=== PATIENT | female | born 1970 | race Caucasian/White ===

== ENCOUNTER 2018-03-15 19:22 | Emergency (ER) | payer OTHER ==
[2018-03-15 20:01] VITALS: TEMP 97.9
[2018-03-15] MEDS ORDERED: MORPHINE SULFATE 4 MG/ML SYRINGE IM STA (20:09)
--- NOTE | 2018-03-15 20:14 | ED ---
Upper Extremity HPI <Martinez Gimenez - Last Filed: 03/15/18 22:14> - General Source: patient, RN notes reviewed Mode of arrival: ambulatory Limitations: no limitations <María Griffin - Last Filed: 03/16/18 00:05> - General Chief Complaint: Extremity Injury, Upper Stated Complaint: rt wrist injury Time Seen by Provider: 03/15/18 19:57 - History of Present Illness Initial Comments: This is a 47-year-old female who presents to the emergency department with chief complaint of right wrist injury. Patient states that her was spraying bees approximately one hour ago. She states that she was running backwards and fell, landing with her arms behind her with an outstretched hand. Patient complains of pain to the right wrist. Obvious rust deformity. Patient states that she is in a significant amount of pain that it's making her feel nauseous and like she is going to pass out. She denies any other injuries or trauma. Complains of some numbness to the fingers. Denies fevers or chills , chest pain or shortness of breath, abdominal pain. (María Griffin) - Related Data Previous Rx's Medication Instructions Recorded HYDROcodone/APAP 5-325MG [[place] 5] 1 each PO Q6HR PRN #10 tab 03/15/18 Allergies Allergy/AdvReac Type Severity Reaction Status Date / Time cephalexin [From Keflex] Allergy Rash/Hives Verified 03/15/18 20:02 Penicillins Allergy Unknown Verified 03/15/18 20:02 Childhood Review of Systems ROS Other: All systems not noted in ROS Statement are negative. <Martinez Gimenez - Last Filed: 03/15/18 22:14> ROS Other: All systems not noted in ROS Statement are negative. <María Griffin - Last Filed: 03/16/18 00:05> ROS Statement: Those systems with pertinent positive or pertinent negative responses have been documented in the HPI. Past Medical History Past Medical History: GERD/Reflux History of Any Multi-Drug Resistant Organisms: None Reported Past Surgical History: Tonsillectomy, Tubal Ligation Past Psychological History: Depression Smoking Status: Never smoker Past Alcohol Use History: Occasional Past Drug Use History: None Reported <María Griffin - Last Filed: 03/16/18 00:05> General Exam <Martinez Gimenez - Last Filed: 03/15/18 22:14> Limitations: no limitations <María Griffin - Last Filed: 03/16/18 00:05> - General Exam Comments Initial Comments: General: Awake and alert, well-developed; in mild distress due to pain. HEENT: Head atraumatic, normocephalic. Pupils are equal, round and reactive to light. Extraocular movements intact. Oropharynx moist without erythema or exudate. Neck: Supple. Normal ROM. Cardiovascular: Regular rate and rhythm. No murmurs, rubs or gallops. Chest symmetrical. Respiratory: Lungs clear to auscultation bilaterally. No wheezes, rales or rhonchi. Normal respiratory effort with no use of accessory muscles. Musculoskeletal: There is obvious gross deformity of the right distal radius. Sensation is intact. Radial pulses are 2+ equal and palpable bilaterally. Patient does have normal movement of all fingers. Unable to move the wrist. Normal range of motion of the right elbow. Skin: [place], warm and dry without rashes or lesions. Neurological: Alert and oriented x3. CN II-XII grossly intact. Speech is fluent and answers are appropriate. No focal neuro deficits. Psychiatric: Normal mood and affect. No overt signs of depression or anxiety noted. (María Griffin) Vital Signs 03/15/18 03/15/18 03/15/18 19:57 21:39 21:42 Temperature 97.9 F Pulse Rate 74 75 72 Respiratory 20 18 18 Rate Blood Pressure 144/63 143/71 146/78 O2 Sat by Pulse 97 98 99 Oximetry 03/15/18 03/15/18 21:45 21:50 Temperature Pulse Rate 60 69 Respiratory 18 18 Rate Blood Pressure 142/73 144/77 O2 Sat by Pulse 100 100 Oximetry Procedures - Procedural Sedation ASA Class: I Mallampati Airway Score: 1 Preparation: radiation engineer applied, pulse oximeter, capnometry used, supplemental O2 applied, suction/airway equipment at bedside, IV secured IV Propofol Dose (mgs): 80 Complications: none Interventions: oxygen applied Patient Tolerated Procedure: well <Martinez Gimenez - Last Filed: 03/15/18 22:14> Medical Decision Making <Martinez Gimenez - Last Filed: 03/15/18 22:14> - Radiology Data Radiology results: report reviewed, image reviewed <María Griffin - Last Filed: 03/16/18 00:05> - Medical Decision Making Resident/PA attestation: I, Dr. Martinez Gimenez, personally saw and examined the patient. I have reviewed and agree with the resident/PA findings, including all diagnostic interpretations and treatment plans as written unless otherwise stated. I was present for the young portions of any procedures performed and inclusive time noted for any critical care statement. Briefly, patient is a 47-year-old female presents with right distal radius fracture. Orthopedic surgery was at bedside performed the reduction. Moderate sedation was performed using a milligrams of propofol bolus. Patient tolerated procedure well. Postreduction films reviewed by myself and orthopedic surgeon for within acceptable limits. Patient put in a splint. She observed in emergency department for several minutes post moderate sedation. (Martinez Gimenez) 47-year-old female presents to the emergency department with chief complaint of right wrist injury. On physical examination, patient has an obvious gross deformity. Neurovascularly intact. Dr. Manpreet Salamanca was consulted and performed a conscious sedation and reduction with splint placement. Patient did tolerate the procedure well. Post reduction x-ray revealed anatomic alignment. Following the procedure, patient ambulating normally and tolerating by mouth intake. Pain is controlled. Patient is to follow-up with Dr. Salamanca tomorrow morning. She is provided with a prescription for [place]. Vital signs stable and in no acute distress. Discharged home at this time. She is in agreement with plan and voices understanding. All questions were answered. (María Griffin) - Radiology Data X-ray of right wrist/forearm impression: Complex fracture dislocation at the radiocarpal joint with approximately 2 cm override X-ray of right wrist post reduction impression: Postreduction anatomic positioning in alignment. (María Griffin) Disposition <Martinez Gimenez - Last Filed: 03/15/18 22:14> Is patient prescribed a controlled substance at d/c from ED?: Yes When asked, does pt state using other controlled substances?: No If prescribed controlled substance>3 days was MAPS reviewed?: Prescribed <3 Days Time of Disposition: 22:39 <Cromwell,María M - Last Filed: 03/16/18 00:05> Clinical Impression: Closed fracture dislocation of radiocarpal joint Disposition: HOME SELF-CARE Condition: Good Instructions: Arm Fracture in Adults (ED) Additional Instructions: Please take medications as prescribed. Please follow up with Dr. Manpreet Salamanca tomorrow morning. Please follow up with primary care provider within 1 -2 days. Return to emergency department if symptoms should worsen or any concerns arise. Prescriptions: HYDROcodone/APAP 5-325MG [[place] 5] 1 each PO Q6HR PRN #10 tab PRN Reason: Pain Referrals: Jacinta Rollins DO [Primary Care Provider] - 1-2 days Manpreet Salamanca DO [Doctor of Osteopathic Medicine] - 1-2 days
[2018-03-15] MEDS ORDERED: ETOMIDATE 2 MG/ML 10 ML VIAL IV STA (20:56)
[2018-03-15] MEDS ORDERED: PROPOFOL 1,000 MG in EMPTY BAG 1 BAG IV ONE (21:07)
[2018-03-15 21:41] VITALS: RESP 18
[2018-03-15] MEDS ORDERED: PROPOFOL 10 MG/ML 20 ML VIAL IV STA (21:42)
[2018-03-15 21:51] VITALS: BP 144/77; PULSE 69
--- NOTE | 2018-03-15 21:56 | XR ---
PROCEDURE: XR wrist limited RT 2 views DATE AND TIME: 03/15/2018 8:29 PM REFERRING PHYSICIAN: María Griffin CLINICAL INDICATION: PHH, Pain TECHNIQUE: Department protocol. COMPARISON: None FINDINGS: There is a complete fracture/dorsal dislocation at the radiocarpal joint with approximately 2 cm override. The fracture fragments predominantly involve the distal radius. IMPRESSION: Complex fracture dislocation.
--- NOTE | 2018-03-15 21:58 | XR ---
PROCEDURE: XR forearm RT 3 views DATE AND TIME: 03/15/2018 8:29 PM REFERRING PHYSICIAN: María Griffin CLINICAL INDICATION: PHH, Pain TECHNIQUE: Department protocol. COMPARISON: None FINDINGS: Previously described complex fracture dislocation at the right wrist redemonstrated. The re mainder of the radius and ulna, up to the elbow, have normal appearance. IMPRESSION: Right wrist complex fracture/dislocation.
--- NOTE | 2018-03-15 22:25 | XR ---
PROCEDURE: XR wrist limited RT - 2 views post reduction DATE AND TIME: 03/15/2018 10:12 PM REFERRING PHYSICIAN: María Griffin CLINICAL INDICATION: PHH, POST REDUCTION TECHNIQUE: Department protocol. COMPARISON: Prereduction views, same day FINDINGS: The post reduction AP and lateral views show anatomic positioning and alignment of the comm inuted distal radius fracture fragments and the radiocarpal joint. No additional fractures are evident. IMPRESSION: Post reduction anatomic positioning and alignment.
[2018-03-15] MEDS ORDERED: MORPHINE SULFATE/PF 10MG/10ML VL IVP STA (22:49)
--- NOTE | 2018-03-16 08:34 | MISC ---
MISCELLANOUS REPORT EMERGENCY ROOM REPORT: Date of encounter 03/15/2018. CHIEF COMPLAINT: Fracture right distal radius. HISTORY: Ms. Ruby is a 47-year-old female that slipped and fell onto her right wrist earlier in the evening of 03/15/2018. She experienced immediate pain and deformity of the wrist and came to the emergency room where x-rays were obtained which show a comminuted displaced fracture of her right distal radius. She is evaluated by the emergency room physician and after that, the emergency room physician contacted me for treatment of the fracture. I evaluated the patient at the bedside and other than the fracture of the right distal radius, there is no other apparent injuries. PHYSICAL EXAMINATION: Patient is alert, oriented x3, in obvious distress secondary to pain. Evaluation of her right wrist reveals obvious deformity of her wrist. Her skin is intact. No evidence of any open fracture. She is neurovascularly intact in the right upper extremity. No evidence of any motor or sensory deficits. She has some mild swelling and there appears to be no other injuries or events in her right wrist. X-rays were reviewed which show a comminuted intra-articular fracture of the right distal radius with 100% dorsal displacement. IMPRESSION: 1. Comminuted intra-articular fracture right distal radius with 100% dorsal displacement. 2. Right wrist pain and deformity. PLAN: The fracture was discussed at length with the patient. I have recommended a closed reduction under sedation and the patient was agreeable to this. The patient signed a consent for a conscious sedation and this was performed by the emergency room department. After a conscious sedation was given, a gentle manipulation was performed to the right distal radius and x-rays revealed concentric reduction of the fracture. The patient was placed in a well-padded and molded splint and tolerated the sedation well. After the procedure, the postoperative care was discussed at length. The patient has been recommended to follow up with me in 1-2 days and that this fracture will most likely require surgical intervention. They were instructed to ice and elevate the extremity. If there is any problems, to call me immediately. The patient was then discharged in stable condition. GLENDY / AKASH: [id number] /
--- NOTE | 2018-03-19 02:49 | CDI ---
Documentation Clarification OP Dear Liz Griffin,PAC, As reviewed the chart, Procedure stop time is missing, Please provide addendum for procedure stop time to code the moderate sedation Thank you, ruby younger. Project Mgr If you have any question, Please contact clinique counter manager at [phone] [facility]
== END 2018-03-15 22:52 | disposition home or self-care (01) ==
LOC: EC 19:22
DX: S52.501A Unspecified fracture of the lower end of right radius, initial encounter for closed fracture (principal); Z88.0 Allergy status to penicillin; W18.30XA Fall on same level, unspecified, initial encounter; Y93.89 Activity, other specified
CPT/HCPCS: 99284; 25605; 99156; 96374; 96372; 73090; 73100; J2270 ×2; J2704

== ENCOUNTER 2018-08-15 09:40 | Day surgery (SDC) | payer OTHER ==
[2018-08-10 13:39] VITALS: BMI 36.3
[~2018-08-15 09:40] MED LIST: LACTATED RINGERS 1,000 ML IV SCH
[2018-08-15 10:02] VITALS: RESP 16; TEMP 98
[2018-08-15] MEDS ORDERED: GLYCOPYRROLATE 0.2 MG/ML 2 ML VIAL ONE (10:30)
[2018-08-15] MEDS ORDERED: LIDOCAINE 1% INJ 10MG/ML (20 ML MDV) ONE (10:30)
[2018-08-15] MEDS ORDERED: PROPOFOL 10 MG/ML 20 ML VIAL IV ONE (10:30)
[2018-08-15 11:11] VITALS: BP 126/58; PULSE 84
--- NOTE | 2018-08-15 13:18 | P.PCN ---
Date of Procedure: 08/15/18 Procedure(s) Performed: Procedure: Esophagogastroduodenoscopy and biopsy. Preoperative diagnosis: Chronic reflux. Postoperative diagnosis: 1. Moderately size hiatal hernia with no obvious esophagitis or complicated reflux disease. 2. Mild gastritis. 3. Biopsies obtained from the duodenum, antrum and esophagus. Preparation and sedation: Was provided by anesthesia. Brief clinical history: The patient is a 47-year-old female who is referred for this evaluation because of chronic reflux symptoms that are not totally resolved with medical therapy. No other alarm symptoms. This evaluation is to assess for complicated reflux disease or other pathology. Procedure: With the patient on her left lateral decubitus position and after informed consent and adequate sedation, I passed the Olympus-GIF 190 video upper endoscope through the cricopharyngeus down the esophagus. GE junction was around 32 cm from the incisors and there was a moderately sized hiatal hernia but no obvious esophagitis or complicated reflux disease. The endoscope was then passed into the stomach which was insufflated with air and inspected in detail including the retroflex view in the cardia. There was some mottling and erythema in the antrum consistent with mild gastritis but there was no ulcers or erosions or bleeding. Pyloric channel, duodenal bulb, post bulbar area and descending duodenum appeared within normal limits. I obtained multiple biopsies from the duodenum, antrum and esophagus then the endoscope was withdrawn. The patient tolerated the procedure well. Plan: The patient was reassured. Will await biopsy results and make further plans based on her course and biopsy results. She will follow-up with you as planned.
== END 2018-08-15 11:44 | disposition home or self-care (01) ==
LOC: ORWHC2ENDO 09:40
DX: K29.50 Unspecified chronic gastritis without bleeding (principal); K44.9 Diaphragmatic hernia without obstruction or gangrene; K21.9 Gastro-esophageal reflux disease without esophagitis; J45.909 Unspecified asthma, uncomplicated; Z79.51 Long term (current) use of inhaled steroids; Z79.899 Other long term (current) drug therapy; Z88.1 Allergy status to other antibiotic agents; Z88.0 Allergy status to penicillin
CPT/HCPCS: 81025; 88305; 43239; J2001; J2704

== ENCOUNTER 2023-11-26 13:18 | Emergency (ER) | payer BC ==
[2023-11-26] MEDS: FAMOTIDINE 20 MG/2 ML VIAL IV STA (13:30)
[2023-11-26] MEDS: SODIUM CHLORIDE 0.9% 1,000 ML IV STA (13:48)
[2023-11-26 14:19] VITALS: TEMP 97.9
[2023-11-26 14:46] LABS: ALT 22 U/L (4-34); AST 21 U/L (14-36); African American GFR (CKD) >90 (>60 ml/min/1.73 sqM); Albumin 3.9 g/dL (3.5-5.0); Alkaline Phosphatase 81 U/L (38-126); Anion Gap 8 mmol/L; Blood Urea Nitrogen 12 mg/dL (7-17); Calcium 8.8 mg/dL (8.4-10.2); Carbon Dioxide 22 mmol/L (22-30); Chloride 110 mmol/L (98-107); Glucose 100 mg/dL (74-99); Non-African American GFR(CKD) >90 (>60 ml/min/1.73 sqM); Potassium 4.2 mmol/L (3.5-5.1); Sodium 140 mmol/L (137-145); Total Bilirubin 0.3 mg/dL (0.2-1.3); Total Protein 6.9 g/dL (6.3-8.2)
[2023-11-26 14:50] LABS: Basophils % (A) 1 %; Eosinophils % (A) 1 %; HCT 45.8 % (34.0-46.0); Lymphocytes # (A) 0.7 k/uL (1.0-4.8); Lymphocytes % (A) 25 %; MCH 31.3 pg (25.0-35.0); MCHC 32.7 g/dL (31.0-37.0); MCV 95.7 fL (80.0-100.0); Mean Platelet Volume 8.4; Monocytes % (A) 2 %; Neutrophils # (A) 1.8 k/uL (1.3-7.7); Neutrophils % (A) 71 %; Platelet Count 187 k/uL (150-450); RBC 4.79 m/uL (3.80-5.40); RDW 12.4 % (11.5-15.5); WBC 2.5 k/uL (3.8-10.6)
--- NOTE | 2023-11-26 14:50 | XR ---
EXAMINATION TYPE: XR chest 2V DATE OF EXAM: 11/26/2023 COMPARISON: None HISTORY: 53-year-old female with syncope TECHNIQUE: AP and lateral views FINDINGS: The cardiomediastinal silhouette, aorta, and pulmonary vasculature are within normal limits. Lungs an d pleural spaces are clear. Rounded retrocardiac opacity. IMPRESSION: No acute cardiopulmonary process. Rounded retrocardiac density suggesting a moderate-sized hiatal her manuel. Correlate for any associated symptoms.
[2023-11-26 15:02] LABS: INR 1.1 (<1.2); Partial Thromboplastin Time 23.2 sec (22.0-30.0); Prothrombin Time 11.9 sec (10.0-12.5)
[2023-11-26 15:45] VITALS: RESP 18
--- NOTE | 2023-11-26 16:06 | ED ---
General Adult HPI - General Chief complaint: Syncope Stated complaint: Syncope Time Seen by Provider: 11/26/23 13:25 Source: RN/MD Mode of arrival: wheelchair Limitations: no limitations - History of Present Illness Initial comments: 53-year-old female who was rushed to the ER from [facility] for possible allergic reaction. The patient states she has a history of iron deficiency anemia. She was at the [facility] today getting an iron infusion. States that today the patient received a different infusion than what she normally does. It is a shorter infusion. States that within a few minutes of the transfusion starting the patient began feeling extremely lightheaded. Staff went to check on her and found her eyes rolling in the back of her head. Patient was shaking, nauseated. She states that her heart was racing. She denied have any chest pain. States that she did not have this previous reaction to the other iron infusion. The patient was given 125 of Solu-Medrol and 50 mg of Benadryl and transferred to our emergency department for further evaluation. - Related Data Home Medications Medication Instructions Recorded Confirmed Zolpidem [Ambien] 10 mg PO HS 08/10/18 11/26/23 Omeprazole 40 mg PO BID 02/05/22 11/26/23 Famotidine [Pepcid AC] 10 mg PO DAILY PRN 11/26/23 11/26/23 Allergies Allergy/AdvReac Type Severity Reaction Status Date / Time ferumoxytol [From Feraheme] Allergy Severe Chest Pain Verified 11/26/23 15:05 cephalexin [From Keflex] Allergy Rash/Hives Verified 11/26/23 14:35 Penicillins Allergy Unknown Verified 11/26/23 14:35 Childhood Review of Systems ROS Statement: Those systems with pertinent positive or pertinent negative responses have been documented in the HPI. ROS Other: All systems not noted in ROS Statement are negative. Past Medical History Past Medical History: GERD/Reflux Additional Past Medical History / Comment(s): IRON DEFICIENCY ANEMIA. History of Any Multi-Drug Resistant Organisms: None Reported Past Surgical History: Orthopedic Surgery, Tonsillectomy, Tubal Ligation Additional Past Surgical History / Comment(s): ORIF RT ARM PLATES AND 7 SCREWS Past Anesthesia/Blood Transfusion Reactions: No Reported Reaction Past Psychological History: Depression Smoking Status: Never smoker - Past Family History Mother Family Medical History: No Reported History General Exam Limitations: no limitations General appearance: alert, anxious, other (Shaking) Head exam: Present: atraumatic, normocephalic, normal inspection Eye exam: Present: normal appearance, PERRL, EOMI. Absent: scleral icterus, conjunctival injection, periorbital swelling ENT exam: Present: normal exam, mucous membranes moist Neck exam: Present: normal inspection. Absent: tenderness, meningismus, lymphadenopathy Respiratory exam: Present: normal lung sounds bilaterally. Absent: respiratory distress, wheezes, rales, rhonchi, stridor Cardiovascular Exam: Present: regular rate, normal rhythm, normal heart sounds. Absent: systolic murmur, diastolic murmur, rubs, gallop, clicks GI/Abdominal exam: Present: soft, normal bowel sounds. Absent: distended, tenderness, guarding, rebound, rigid Extremities exam: Present: normal inspection, full ROM, normal capillary refill. Absent: tenderness, pedal edema, joint swelling, calf tenderness Back exam: Present: normal inspection Neurological exam: Present: alert, oriented X3, CN II-XII intact Psychiatric exam: Present: normal affect, normal mood Skin exam: Present: warm, dry, intact, normal color. Absent: rash Course Vital Signs 11/26/23 11/26/23 11/26/23 13:21 15:00 16:30 Temperature 97.9 F Pulse Rate 70 81 71 Respiratory 22 18 18 Rate Blood Pressure 131/74 109/71 117/65 O2 Sat by Pulse 100 97 97 Oximetry Medical Decision Making - Medical Decision Making Was pt. sent in by a medical professional or institution (, PA, TECHNICAL SUPPORT ASSOCIATE, urgent care, hospital, or retirement...) When possible be specific @ -Patient was sent in by the [facility] Did you speak to anyone other than the patient for history (EMS, parent, family, police, friend...)? What history was obtained from this source @ -I spoke with the charge nurse in regards the patient's symptoms as they did go over to the [facility] to get the patient Did you review nursing and triage notes (agree or disagree)? Why? @ -I reviewed and agree with nursing and triage notes Were old charts reviewed (outside hosp., previous admission, EMS record, old EKG, old radiological studies, urgent care reports/EKG's, retirement records)? Report findings @ -No old charts were reviewed Differential Diagnosis (chest pain, altered mental status, abdominal pain women, abdominal pain men, vaginal bleeding, weakness, fever, dyspnea, syncope, headache, dizziness, GI bleed, back pain, seizure, CVA, palpatations, mental health, musculoskeletal)? @ -Differential Palpitations Ventricular arrhythmias, atrial arrhythmias, myocardial infarction, anemia, thyrotoxicosis, electrolyte imbalance, hypokalemia, pulmonary embolism, pulmonary disease, drugs, alcohol, anxiety, stress.... This is not meant to be an all-inclusive list. EKG interpreted by me (3pts min.). @ -Yes and demonstrates sinus rhythm with a rate of 65. MA interval 124. QRS 98. QTc of 430. No acute ST segment elevations or depressions X-rays interpreted by me (1pt min.). @ -Yes and demonstrates no acute process CT interpreted by me (1pt min.). @ -None done U/S interpreted by me (1pt. min.). @ -None done What testing was considered but not performed or refused? (CT, X-rays, U/S, labs)? Why? @ -None What meds were considered but not given or refused? Why? @ -None Did you discuss the management of the patient with other professionals (professionals i.e. , PA, TECHNICAL SUPPORT ASSOCIATE, lab, RT, psych nurse, manager social responsibility, corrugator supervisor, teacher, bank operations officer, upper caser)? Give summary @ -No Was smoking cessation discussed for >3mins.? @ -No Was critical care preformed (if so, how long)? @ -No Were there social determinants of health that impacted care today? How? (Homelessness, low income, unemployed, alcoholism, drug addiction, transportation, low edu. Level, literacy, decrease access to med. care, assisted, rehab)? @ -No Was there de-escalation of care discussed even if they declined (Discuss DNR or withdrawal of care, Hospice)? DNR status @ -No What co-morbidities impacted this encounter? (DM, HTN, Smoking, COPD, CAD, Cancer, CVA, ARF, Chemo, Hep., AIDS, mental health diagnosis, sleep apnea, morbid obesity)? @ -Iron deficiency Was patient admitted / discharged? Hospital course, mention meds given and route, prescriptions, significant lab abnormalities, going to OR and other pertinent info. @ -Upon arrival patient was seen and evaluated in room 13. Thorough history and physical exam was performed. IV had been established. She was given Pepcid 20 mg. She was observed in the emergency department for several hours. She feels much improved as time goes on. Patient will be discharged home at this time. Instructed to steer clear of the iron infusion as she has a adverse effect to it. Patient understood this. Instructed to follow-up with her sitecore developer for evaluation return for any new or worsening symptoms. Patient agreeable and discharged in stable condition Undiagnosed new problem with uncertain prognosis? @ -No Drug Therapy requiring intensive monitoring for toxicity (Heparin, Nitro, In sulin, Cardizem)? @ -No Were any procedures done? @ -No Diagnosis/symptom? @ -Acute adverse reactioniron infusion, acute palpitations Acute, or Chronic, or Acute on Chronic? @ -Acute Uncomplicated (without systemic symptoms) or Complicated (systemic symptoms)? @ -Complicated Side effects of treatment? @ -No Exacerbation, Progression, or Severe Exacerbation? @ -No Poses a threat to life or bodily function? How? (Chest pain, [place], [place], pneumonia, PE, COPD, DKA, ARF, appy, cholecystitis, CVA, Diverticulitis, Homicidal, Suicidal, threat to staff... and all critical care pts) @ -No - Lab Data Result diagrams: 11/26/23 14:01 11/26/23 14:01 Lab Results 11/26/23 11/26/23 11/26/23 Range/Units 14:01 14:01 14:01 WBC 2.5 L (3.8-10.6) k/uL RBC 4.79 (3.80-5.40) m/uL Hgb 15.0 (11.4-16.0) gm/dL Hct 45.8 (34.0-46.0) % MCV 95.7 (80.0-100.0) fL MCH 31.3 (25.0-35.0) pg MCHC 32.7 (31.0-37.0) g/dL RDW 12.4 (11.5-15.5) % Plt Count 187 (150-450) k/uL MPV 8.4 Neutrophils % 71 % Lymphocytes % 25 % Monocytes % 2 % Eosinophils % 1 % Basophils % 1 % Neutrophils # 1.8 (1.3-7.7) k/uL Lymphocytes # 0.7 L (1.0-4.8) k/uL Monocytes # 0.0 (0-1.0) k/uL Eosinophils # 0.0 (0-0.7) k/uL Basophils # 0.0 (0-0.2) k/uL PT 11.9 (10.0-12.5) sec INR 1.1 (<1.2) APTT 23.2 (22.0-30.0) sec Sodium 140 (137-145) mmol/L Potassium 4.2 (3.5-5.1) mmol/L Chloride 110 H (98-107) mmol/L Carbon Dioxide 22 (22-30) mmol/L Anion Gap 8 mmol/L BUN 12 (7-17) mg/dL Creatinine 0.72 (0.52-1.04) mg/dL Est GFR (CKD-EPI)AfAm >90 (>60 ml/min/1.73 sqM) Est GFR (CKD-EPI)NonAf >90 (>60 ml/min/1.73 sqM) Glucose 100 H (74-99) mg/dL Calcium 8.8 (8.4-10.2) mg/dL Total Bilirubin 0.3 (0.2-1.3) mg/dL AST 21 (14-36) U/L ALT 22 (4-34) U/L Alkaline Phosphatase 81 (38-126) U/L Troponin I (0.000-0.034) ng/mL Total Protein 6.9 (6.3-8.2) g/dL Albumin 3.9 (3.5-5.0) g/dL 11/26/23 Range/Units 14:01 WBC (3.8-10.6) k/uL RBC (3.80-5.40) m/uL Hgb (11.4-16.0) gm/dL Hct (34.0-46.0) % MCV (80.0-100.0) fL MCH (25.0-35.0) pg MCHC (31.0-37.0) g/dL RDW (11.5-15.5) % Plt Count (150-450) k/uL MPV Neutrophils % % Lymphocytes % % Monocytes % % Eosinophils % % Basophils % % Neutrophils # (1.3-7.7) k/uL Lymphocytes # (1.0-4.8) k/uL Monocytes # (0-1.0) k/uL Eosinophils # (0-0.7) k/uL Basophils # (0-0.2) k/uL PT (10.0-12.5) sec INR (<1.2) APTT (22.0-30.0) sec Sodium (137-145) mmol/L Potassium (3.5-5.1) mmol/L Chloride (98-107) mmol/L Carbon Dioxide (22-30) mmol/L Anion Gap mmol/L BUN (7-17) mg/dL Creatinine (0.52-1.04) mg/dL Est GFR (CKD-EPI)AfAm (>60 ml/min/1.73 sqM) Est GFR (CKD-EPI)NonAf (>60 ml/min/1.73 sqM) Glucose (74-99) mg/dL Calcium (8.4-10.2) mg/dL Total Bilirubin (0.2-1.3) mg/dL AST (14-36) U/L ALT (4-34) U/L Alkaline Phosphatase (38-126) U/L Troponin I <0.012 (0.000-0.034) ng/mL Total Protein (6.3-8.2) g/dL Albumin (3.5-5.0) g/dL Disposition Clinical Impression: Near syncope, Adverse effect of iron Disposition: HOME SELF-CARE Condition: Stable Instructions (If sedation given, give patient instructions): General Allergic Reaction (ED) Additional Instructions: You likely had an adverse reaction to the iron. I recommend that you return to your previous iron transfusion. Follow-up with the sitecore developer in regards to these symptoms and return for any new or worsening symptoms Is patient prescribed a controlled substance at d/c from ED?: No Referrals: Jacinta Rollins DO [Primary Care Provider] - 1-2 days Time of Disposition: 16:06
[2023-11-26 17:05] VITALS: BP 117/65; PULSE 71
== END 2023-11-26 16:30 | disposition home or self-care (01) ==
LOC: EC 13:18
DX: R55 Syncope and collapse (principal); T45.4X5A Adverse effect of iron and its compounds, initial encounter; Z88.1 Allergy status to other antibiotic agents; Z88.0 Allergy status to penicillin; Z88.8 Allergy status to other drugs, medicaments and biological substances
CPT/HCPCS: 36415; 80053; 84484; 85025; 85610; 85730; 71046; 99284; 96374; 96361; J3490